=== PATIENT | female | born 1955 | race Caucasian/White ===

== ENCOUNTER 2018-03-12 17:16 | Observation (INO) | payer OTHER ==
--- NOTE | 2018-03-12 17:21 | PDOC ---
Rapid Medical Evaluation Time Seen by Provider: 03/12/18 17:17 Medical Evaluation: 03/12/18 17:18 62-year-old female with IDDM, HLD, HTN with "2 clogged veins in the heart" ( refused intervention), presenting with sudden onset of chest pain, left arm pain , and left arm "tingling" last night. Denies SOB, nausea, diaphoresis. V/s unremarkable. Alert, oriented, no distress. RRR, S1/S2. Lungs CTAB. Plan: -Stat EKG -Cardiac labs -CXR -To Main ED for further evaluation
[2018-03-12] MEDS ORDERED: ASPIRIN 81 MG CHEWABLE TABLETS PO ONE (17:54)
--- NOTE | 2018-03-12 17:55 | PDOC ---
History of Present Illness - General History Source: Patient Exam Limitations: Language Barrier (used [employer] phone ) - History of Present Illness Presenting Symptoms: Other (left arm pain) Timing/Duration: reports: constant Severity/Quality: reports: moderate, aching Location: reports: other (denies substernal chest pain) Prior Chest Pain/Cardiac Workup: reports: Cardiac Cath Nitro Today/Relief: Yes: no nitro taken today Aspirin Received prior to arrival (Core Measure): Yes: 81 mg x 4, provided by ED Beta Dav indicated at this time? (Core Measure): Yes <Ina Morris - Last Filed: 03/12/18 19:58> <Elijah Trinidad - Last Filed: 03/12/18 22:02> - General Chief Complaint: Chest Pain Stated Complaint: CHEST PAIN Time Seen by Provider: 03/12/18 17:17 - History of Present Illness Initial Comments: 03/12/18 21:45 Patient is a 62 year old female with a significant past medical history of Diabetes, HTN, Hypercholesterolemia, who presents to the ED with complaints of right arm pain that began last night. Patient reports experiencing gradually increased right arm pain since last night, prompting her to come into the ED for further evaluation. She reports having 2 clogged arteries and received catheterization in 2006 followed by advising her to have surgery but she refused. Denies chest pain, Sob. Denies nausea, vomiting. Allergies: None Social history: No smoking. No alcohol. No illicit drugs. Surgical history: None PMD: None (Elijah Trinidad) Past History - Past Medical History Cardiac Disorders: Yes COPD: No Diabetes: Yes HTN: Yes Hypercholesterolemia: Yes - Surgical History Abdominal Surgery: Yes (TUBAL LIGATION) - Suicide/Smoking/Psychosocial Hx Smoking History: Never smoked Information on smoking cessation initiated: No Hx Alcohol Use: No Drug/Substance Use Hx: No Substance Use Type: None <Ina Morris - Last Filed: 03/12/18 19:58> <Elijah Trinidad - Last Filed: 03/12/18 22:02> - Past Medical History Allergies/Adverse Reactions: Allergies Allergy/AdvReac Type Severity Reaction Status Date / Time No Known Allergies Allergy Verified 03/12/18 17:19 Review of Systems <Ina Morris - Last Filed: 03/12/18 19:58> - Review of Systems Able to Perform ROS?: Yes <AmosElijah workman - Last Filed: 03/12/18 22:02> - Review of Systems Comments:: 03/12/18 21:45 CONSTITUTIONAL: Absent: fever, chills, diaphoresis, generalized weakness, malaise, loss of appetite HEENT: Absent: rhinorrhea, nasal congestion, throat pain, throat swelling, difficulty swallowing, mouth swelling, ear pain, eye pain, visual changes CARDIOVASCULAR: Absent: chest pain, syncope, palpitations, irregular heart rate, lightheadedness , peripheral edema RESPIRATORY: Absent: cough, shortness of breath, dyspnea with exertion, orthopnea, wheezing, stridor, hemoptysis GASTROINTESTINAL: Absent: abdominal pain, abdominal distension, nausea, vomiting, diarrhea, constipation, melena, hematochezia GENITOURINARY: Absent: dysuria, frequency, urgency, hesitancy, hematuria, flank pain, genital pain MUSCULOSKELETAL: +Right arm pain. Absent: myalgia, arthralgia, joint swelling SKIN: Absent: rash, itching, pallor HEMATOLOGIC/IMMUNOLOGIC: Absent: easy bleeding, easy bruising, lymphadenopathy, frequent infections ENDOCRINE: Absent: unexplained weight gain, unexplained weight loss, heat intolerance, cold intolerance NEUROLOGIC: Absent: headache, focal weakness or paresthesias, dizziness, unsteady gait, seizure, mental status changes, bladder or bowel incontinence PSYCHIATRIC: Absent: anxiety, depression, suicidal or homicidal ideation, hallucinations. (Elijah Trinidad) *Physical Exam <Ina Morris - Last Filed: 03/12/18 19:58> <Elijah Trinidad - Last Filed: 03/12/18 22:02> - Vital Signs Last Vital Signs Temp Pulse Resp BP Pulse Ox 97.3 F L 75 18 149/65 98 03/12/18 17:19 03/12/18 17:19 03/12/18 17:19 03/12/18 17:19 03/12/18 17:53 - Physical Exam Comments: 03/12/18 21:46 GENERAL: Well developed, well nourished. Awake and alert. In no acute distress. HEENT: Normocephalic, atraumatic. PERRLA, EOMI. No conjunctival pallor. Sclerae are non -icteric. Moist mucous membranes. Oropharynx is clear. NECK: Supple. Full ROM. No JVD. Carotid pulses 2+ and symmetric, without bruits. No thyromegaly. No lymphadenopathy. CARDIOVASCULAR: Regular rate and rhythm. No murmurs, rubs, or gallops. Distal pulses are 2+ and symmetric. PULMONARY: No evidence of respiratory distress. Lungs clear to auscultation bilaterally. No wheezing, rales or rhonchi. ABDOMINAL:+Protuberant belly. Soft. Non-tender. Non-distended. No rebound or guarding. No organomegaly. Normoactive bowel sounds. MUSCULOSKELETAL: Normal range of motion at all joints. No bony deformities or tenderness. No CVA tenderness. EXTREMITIES: No cyanosis. No clubbing. No edema. No calf tenderness. SKIN: Warm and dry. Normal capillary refill. No rashes. No jaundice. NEUROLOGICAL: Alert, awake, appropriate. Cranial nerves 2-12 intact. No deficits to light touch and temperature in face, upper extremities and lower extremities. No motor deficits in the in face, upper extremities and lower extremities. Normoreflexic in the upper and lower extremities. Normal speech. Toes are downgoing bilaterally. Gait is normal without ataxia. PSYCHIATRIC: Cooperative. Good eye contact. Appropriate mood and affect. (Elijah Trinidad) Heart Score/ECG Review - History History: Highly suspicious - Electrocardiogram EKG: Significant ST-depression - Risk Factors Risk Factors Heart Score: Yes Hx Hypercholesterolemia, Yes Hx Hypertension, Yes Hx Diabetes Based on the list above the patient has:: >/=3 risk factors or Hx atherosclerotic disease - ECG Intrepretation Rhythm: Regular Rhythm - ST and T ST Depression Suggest: Ischemia - ECG Impressions Ischemic Changes: Yes <Ina Morris - Last Filed: 03/12/18 19:58> ED Treatment Course - LABORATORY CBC & Chemistry Diagram: 03/12/18 17:53 03/12/18 17:53 <Ina Morris - Last Filed: 03/12/18 19:58> - LABORATORY CBC & Chemistry Diagram: 03/12/18 17:53 03/12/18 17:53 <Elijah Trinidad - Last Filed: 03/12/18 22:02> - ADDITIONAL ORDERS Additional order review: Laboratory Results 03/12/18 03/12/18 17:53 17:53 PT with INR 11.20 INR 0.99 Sodium 142 Potassium 4.7 Chloride 103 Carbon Dioxide 30 Anion Gap 9 BUN 21 H Creatinine 0.9 Creat Clearance w eGFR > 60 Random Glucose 180 H Calcium 9.5 Total Bilirubin 0.2 AST 14 L ALT 21 Alkaline Phosphatase 92 Creatine Kinase 85 Troponin I < 0.02 B-Natriuretic Peptide 682.56 H Total Protein 7.5 Albumin 3.7 03/12/18 17:53 RBC 4.20 MCV 84.7 MCHC 33.1 RDW 14.2 MPV 9.7 Neutrophils % 41.3 L Lymphocytes % 47.6 H Monocytes % 9.2 Eosinophils % 1.3 Basophils % 0.6 - Medications Given in the ED: ED Medications Discontinued Medications Generic Name Dose Route Start Last Admin Trade Name Murray PRN Reason Stop Dose Admin Aspirin 324 mg 03/12/18 17:54 03/12/18 17:57 Asa - PO 03/12/18 17:55 324 mg ONCE ONE Administration Metoprolol Tartrate 25 mg 03/12/18 18:30 03/12/18 18:41 Lopressor - PO 03/12/18 18:31 25 mg ONCE ONE Administration *DC/Admit/Observation/Transfer - Discharge Dispostion Decision to Admit order: Yes <Ina Morris - Last Filed: 03/12/18 19:58> <Elijah Trinidad - Last Filed: 03/12/18 22:02> Diagnosis at time of Disposition: ACS (acute coronary syndrome) Diabetes Qualifiers: Diabetes mellitus type: type 1 Diabetes mellitus complication status: with hyperglycemia Qualified Code(s): E10.65 - Type 1 diabetes mellitus with hyperglycemia Hypertension Qualifiers: Hypertension type: essential hypertension Qualified Code(s): I10 - Essential ( primary) hypertension - Attestations Scribe Attestion: 03/12/18 21:48 Documentation prepared by Elijah Trinidad, acting as medical collections representative for Ina Morris MD. (Elijah Trinidad)
[2018-03-12] MEDS ORDERED: ASPIRIN 81 MG CHEWABLE TABLETS ONE (17:56)
[2018-03-12 18:13] LABS: BASO % 0.6 % (0-2.0); EOS % 1.3 % (0-4.5); HEMATOCRIT 35.6 % (32.4-45.2); HEMOGLOBIN 11.8 GM/dL (10.7-15.3); LYMPH % 47.6 % (8-40); MCH 28.1 pg (25.7-33.7); MCHC 33.1 g/dl (32.0-36.0); MEAN CELL VOLUME 84.7 fl (80-96); MEAN PLT VOLUME 9.7 fl (7.5-11.1); MONO % 9.2 % (3.8-10.2); NEUT % 41.3 % (42.8-82.8); PLATELET COUNT 273 K/MM3 (134-434); RDW 14.2 % (11.6-15.6); WHITE BLOOD COUNT 7.9 K/mm3 (4.0-10.0)
[2018-03-12 18:26] LABS: INR 0.99 (0.83-1.09); PROTHROMBIN TIME (PATIENT) 11.2 SEC (9.7-13.0)
[2018-03-12] MEDS ORDERED: METOPROLOL TARTRATE 25 MG TABLET (FP) PO ONE (18:30)
[2018-03-12 18:38] LABS: ALBUMIN 3.7 g/dl (3.4-5.0); ANION GAP 9 MMOL/L (8-16); BILIRUBIN,TOTAL 0.2 mg/dL (0.2-1.0); BLOOD UREA NITROGEN 21 mg/dL (7-18); CALCIUM 9.5 mg/dL (8.5-10.1); CHLORIDE 103 mmol/L (98-107); CO2 30 mmol/L (21-32); CREATININE 0.9 mg/dL (0.55-1.02); GLUCOSE,RANDOM 180 mg/dL (74-106); POTASSIUM 4.7 mmol/L (3.5-5.1); SGOT/AST 14 U/L (15-37); SGPT/ALT 21 U/L (12-78); SODIUM 142 mmol/L (136-145); TOT PROT 7.5 g/dl (6.4-8.2)
[2018-03-12 18:42] LABS: ALK PHOS 92 U/L (45-117); N-TERMINAL BNP 682.56 pg/ml (5-125)
[2018-03-12] MEDS ORDERED: METOPROLOL TARTRATE 25 MG TABLET (FP) ONE (18:43)
--- NOTE | 2018-03-12 21:58 | HP ---
Admitting History and Physical - Primary Care Physician PCP: Susan Wing - Admission Chief Complaint: chest pain History of Present Illness: 62 year old female with a significant past medical history of Diabetes, HTN, Hypercholesterolemia, who presents to the ED with complaints of right arm pain that began last night. Patient reports experiencing gradually increased right arm pain since last night, prompting her to come into the ED for further evaluation. She reports having 2 clogged arteries and received catheterization in 2006 followed by advising her to have surgery but she refused. - Past Medical History Cardiovascular: Yes: HTN, Hyperlipdemia Endocrine: Yes: Diabetes Mellitus - Smoking History Smoking history: Never smoked - Alcohol/Substance Use Hx Alcohol Use: No Home Medications - Allergies Allergies/Adverse Reactions: Allergies Allergy/AdvReac Type Severity Reaction Status Date / Time No Known Allergies Allergy Verified 03/12/18 17:19 - Home Medications Home Medications: Ambulatory Orders Aspirin [Aspirin EC] 81 mg PO DAILY 03/13/18 Atorvastatin Calcium 80 mg PO DAILY 03/13/18 Clopidogrel Bisulfate [Plavix] 75 mg PO DAILY 03/13/18 Isosorbide Mononitrate [Isosorbide Mononitrate ER] 30 mg PO DAILY 03/13/18 Metformin HCl 850 mg PO BID 03/13/18 Metoprolol Tartrate 50 mg PO DAILY 03/13/18 Pantoprazole Sodium [Protonix] 40 mg PO DAILY 03/13/18 Sitagliptin Phosphate [Januvia] 100 mg PO DAILY 03/13/18 Physical Examination Vital Signs: Vital Signs Temperature 97.3 F L 03/12/18 17:19 Pulse Rate 75 03/12/18 17:19 Respiratory Rate 18 03/12/18 17:19 Blood Pressure 149/65 03/12/18 17:19 O2 Sat by Pulse Oximetry (%) 98 03/12/18 17:53 Constitutional: Yes: No Distress HENT: Yes: Atraumatic Neck: Yes: Supple Cardiovascular: Yes: Regular Rate and Rhythm Respiratory: Yes: CTA Bilaterally Gastrointestinal: Yes: Normal Bowel Sounds Extremities: Yes: WNL Edema: No Peripheral Pulses WNL: Yes Neurological: Yes: Alert, Oriented Labs: CBC, BMP 03/12/18 17:53 03/12/18 17:53 Problem List - Problems (1) Diabetes Assessment/Plan: bgms will get home med list Code(s): E11.9 - TYPE 2 DIABETES MELLITUS WITHOUT COMPLICATIONS Qualifiers: Diabetes mellitus type: type 1 Diabetes mellitus complication status: with hyperglycemia Qualified Code(s): E10.65 - Type 1 diabetes mellitus with hyperglycemia (2) Hypertension Assessment/Plan: on meds stable Code(s): I10 - ESSENTIAL (PRIMARY) HYPERTENSION Qualifiers: Hypertension type: essential hypertension Qualified Code(s): I10 - Essential (primary) hypertension (3) Chest pain Assessment/Plan: tele monitoring cardiac profile and troponin cardiology on board Code(s): R07.9 - CHEST PAIN, UNSPECIFIED Assessment/Plan Laboratory Tests 03/12/18 03/12/18 03/12/18 17:53 17:53 17:53 WBC 7.9 RBC 4.20 Hgb 11.8 Hct 35.6 MCV 84.7 MCH 28.1 MCHC 33.1 RDW 14.2 Plt Count 273 MPV 9.7 Absolute Neuts (auto) 3.3 Neutrophils % 41.3 L Lymphocytes % 47.6 H Monocytes % 9.2 Eosinophils % 1.3 Basophils % 0.6 Nucleated RBC % 0 PT with INR 11.20 INR 0.99 Sodium 142 Potassium 4.7 Chloride 103 Carbon Dioxide 30 Anion Gap 9 BUN 21 H Creatinine 0.9 Creat Clearance w eGFR > 60 Random Glucose 180 H Calcium 9.5 Total Bilirubin 0.2 AST 14 L ALT 21 Alkaline Phosphatase 92 Creatine Kinase 85 Troponin I < 0.02 B-Natriuretic Peptide 682.56 H Total Protein 7.5 Albumin 3.7 Active Medications Generic Name Dose Route Start Last Admin Trade Name Freq PRN Reason Stop Dose Admin Acetaminophen 650 mg 03/12/18 22:03 Tylenol - PO Q6H PRN FEVER Aspirin 81 mg 03/13/18 10:00 03/13/18 14:21 Ecotrin - PO 81 mg DAILY [facility] Administration Atorvastatin Calcium 40 mg 03/13/18 22:00 Lipitor - PO HS DAN[facility]TE Atorvastatin Calcium 80 mg 03/13/18 18:30 Lipitor - PO DAILY [facility] Isosorbide Mononitrate 30 mg 03/13/18 18:30 Imdur - PO DAILY [facility] Metoprolol Succinate 25 mg 03/13/18 10:30 03/13/18 14:21 Toprol Xl - PO 25 mg DAILY [facility] Administration Non-Formulary Medication 850 mg 03/13/18 22:00 Metformin Hcl PO BID [facility] Non-Formulary Medication 50 mg 03/13/18 18:30 Metoprolol Tartrate PO DAILY [facility] Pantoprazole Sodium 40 mg 03/13/18 18:30 Protonix - PO DAILY [facility] Ramipril 5 mg 03/13/18 10:30 03/13/18 14:21 Altace - PO 5 mg DAILY [facility] Administration Sitagliptin Phosphate 100 mg 03/13/18 18:30 Januvia - PO DAILY [facility]
[2018-03-12] MEDS ORDERED: ACETAMINOPHEN 325 MG TABLET (FP) PO PRN (22:03)
[2018-03-12] MEDS ORDERED: ACETAMINOPHEN 325 MG TABLET (FP) PO ONE (22:38)
[2018-03-12] MEDS ORDERED: ACETAMINOPHEN 325 MG TABLET (FP) ONE (23:51)
[2018-03-13 02:36] VITALS: BMI 22.5
[2018-03-13 07:11] LABS: HEMATOCRIT 35.3 % (32.4-45.2); HEMOGLOBIN 11.5 GM/dL (10.7-15.3); MCH 27.7 pg (25.7-33.7); MCHC 32.5 g/dl (32.0-36.0); MEAN CELL VOLUME 85.2 fl (80-96); PLATELET COUNT 208 K/MM3 (134-434); RBC 4.15 M/mm3 (3.60-5.2); WHITE BLOOD COUNT 6.6 K/mm3 (4.0-10.0)
[2018-03-13 07:49] LABS: CHLORIDE 106 mmol/L (98-107); POTASSIUM 4.4 mmol/L (3.5-5.1); SODIUM 141 mmol/L (136-145)
[2018-03-13 08:02] LABS: ALBUMIN 3.3 g/dl (3.4-5.0); ALK PHOS 83 U/L (45-117); ANION GAP 10 MMOL/L (8-16); BILIRUBIN,TOTAL 0.4 mg/dL (0.2-1.0); BLOOD UREA NITROGEN 14 mg/dL (7-18); CALCIUM 8.9 mg/dL (8.5-10.1); CO2 25 mmol/L (21-32); CREATININE 0.8 mg/dL (0.55-1.02); GLUCOSE,RANDOM 149 mg/dL (74-106); SGOT/AST 14 U/L (15-37); SGPT/ALT 17 U/L (12-78)
--- NOTE | 2018-03-13 09:19 | PN ---
Progress Note (short form) - Note Progress Note: Chief Complaint: Events noted, notes reviewed, left arm pain and chest pain syndrome History of Present Illness: Seen and examined on telemetry. Full consult dictated Medications: Current Medications Acetaminophen (Tylenol -) 650 mg PO Q6H PRN PRN Reason: FEVER Review of Systems - Review of Systems Constitutional: denies: Chills or Fever Cardiovascular: as noted above Gastrointestinal: denies: Nausea, Vomiting, Diarrhea, Constipation or Abdominal Pain Genitourinary: No symptoms reported Neurological: No symptoms reported Vital Signs: Last Vital Signs Temp Pulse Resp BP Pulse Ox 97.8 F 58 L 18 142/64 94 L 03/13/18 05:00 03/13/18 05:00 03/13/18 05:00 03/13/18 05:00 03/13/18 01:00 Intake & Output 03/10/18 03/11/18 03/12/18 03/13/18 23:59 23:59 23:59 23:59 Intake Total 140 Balance 140 Weight 150 lb 139 lb 6.4 oz Neck: Supple Negative JVD No Bruit Respiratory: Clear to A&P Cardiovascular: S1 S2 Regularly Rate and Rhythm No Murmurs clicks or Gallops Gastrointestinal: Soft Benign Normal Bowel Sounds Ext: Negative Edema Labs: Troponin, BNP 03/12/18 03/13/18 17:53 01:00 Troponin I < 0.02 < 0.02 B-Natriuretic Peptide 682.56 H CBC, BMP 03/13/18 05:30 03/13/18 05:30 Hepatic Panel Total Bilirubin 0.4 mg/dL (0.2-1.0) 03/13/18 05:30 AST 14 U/L (15-37) L 03/13/18 05:30 ALT 17 U/L (12-78) 03/13/18 05:30 Alkaline Phosphatase 83 U/L (45-117) 03/13/18 05:30 Albumin 3.3 g/dl (3.4-5.0) L 03/13/18 05:30 INR, PTT INR 0.99 (0.83-1.09) 03/12/18 17:53 Assessment/Plan ASSESSMENT: 1. Chest pain syndrome in a patient with reported CAD angina pectoris 2. Probable diastolic LV dysfunction with class 0 NYHA classification LV failure 3. HTN 4. DM 5. Hypercholesterolemia PLAN: 1. Add B-Blockers 2. Add ACEI or ARBS 3. ASA 4. Statins 5. Obtain records form her prior cardiac evaluation 6. Echocardiography for evaluation of LV size and function 7. To proceed with MPI study for assessing ischemic burden Griselda Sands M.D.
[2018-03-13] MEDS ORDERED: REGADENOSON 0.4 MG/5 ML PRE-FILLED SYRINGE IVPUSH ONE ×2 (10:30→12:30)
[2018-03-13] MEDS ORDERED: metoPROLOL SUCCINATE 25 MG TAB.SR.24H (FP) PO SCH (10:30)
--- NOTE | 2018-03-13 10:43 | CONS ---
DATE OF CONSULTATION: 03/13/2018 Consultation requested by Elvin Wing MD. CHIEF COMPLAINT: Left arm pain, chest pain, cardiovascular evaluation. HISTORY OF PRESENT ILLNESS: A 62-year-old, female with known history of coronary artery disease, angina pectoris, probable diastolic left ventricular dysfunction with class 0 [place] Heart Association classification left ventricular failure, hypertensive cardiovascular disease, diabetes mellitus, hypercholesterolemia, who presented to [facility] with left arm discomfort and left-sided chest discomfort which was noted both at rest and with activity. Patient denied any associated diaphoresis. Patient reported dyspnea with mild to moderate physical exertion. Patient denied any orthopnea, paroxysmal nocturnal dyspnea or peripheral edema. Patient denied any palpitations, dizziness, lightheadedness or syncope. Patient denied any fatigue or tiredness. PAST MEDICAL HISTORY: Coronary artery disease; angina pectoris; diastolic left ventricular dysfunction with class 0 [place] Heart Association classification left ventricular failure; hypertensive cardiovascular disease; diabetes mellitus; hypercholesterolemia. PAST SURGICAL HISTORY: Tubal ligation. SOCIAL HISTORY: Denies tobacco abuse, alcohol intake. FAMILY HISTORY: Positive coronary artery disease. ALLERGIES: None reported. MEDICAL THERAPY AT HOME: Not known. REVIEW OF SYSTEMS: Head and neck: Denies headache, photophobia, blurring of vision. Respiratory: No cough or sputum production. Cardiovascular: As noted above. Gastrointestinal: Denies nausea, vomiting, diarrhea, abdominal discomfort. Genitourinary: No symptoms reported. PHYSICAL EXAMINATION: Vital signs: Blood pressure is 142/64 mmHg, pulse rate is 58 beats per minute. Head and neck: Pupils equally reactive to light and accommodation. Extraocular muscles are intact. Anicteric sclera. Negative JVD. No bruit appreciated. Chest: Clear to auscultation and percussion. Cardiovascular: S1, S2, regular. No murmur, clicks or gallops. Abdomen: Soft. Benign. Normoactive bowel sounds. Extremities: Negative edema. Intact distal pulses. No calf tenderness. Electrocardiogram reveals sinus rhythm, with diffuse ST segment and T-wave abnormality consistent with ischemia. CPK, troponin levels were noted. CBC revealed a white cell count of 6.6, hemoglobin 11.5, platelet count 205. Basic metabolic profile revealed a sodium of 141, potassium 4.4, BUN of 14, creatinine 0.8, glucose 149. INR 0.99. ASSESSMENT: 1. Chest pain syndrome, in a patient with known history of coronary artery disease, angina pectoris. 2. Probable diastolic left ventricular dysfunction with class 0 [place] Heart [employer] classification left ventricular failure. 3. Hypertensive cardiovascular disease. 4. Diabetes mellitus. 5. Hypercholesterolemia. RECOMMENDATIONS: 1. Beta-blockers. 2. Angiotensin-receptor blockers or RANDY inhibitors. 3. Aspirin. 4. Statins. 5. Obtain records from her prior cardiac evaluation. 6. Echocardiography for evaluation of left ventricular size and function. 7. To proceed with pharmacologic myocardial perfusion imaging study for assessing ischemic burden. Thank you for the kind referral. OLIVA GUTIERRES M.D. [id number]
[2018-03-13 11:21] LABS: CHOLESTEROL 340 mg/dL (50-200); TRIGLYCERIDES 340 mg/dL (35-160)
[2018-03-13 11:48] LABS: HDL CHOLESTEROL 32 mg/dL (40-60)
--- NOTE | 2018-03-13 14:02 | ECHO ---
Name: LYSSA BALOGIA Exam:Adult Echocardiogram Study Date: 03/13/2018 10:36 AM Age: 62 yrs Reason For Study: Chest pain Height: 66 in Weight: 139 lb BSA: 1.7 m2 MMode/2D Measurements & Calculations IVSd: 1.0 cm Ao root diam: 2.0 cm LVIDd: 4.6 cm LA dimension: 2.9 cm LVIDs: 2.9 cm LVPWd: 1.0 cm EDV(Teich): 98.3 ml LVOT diam: 2.0 cm ESV(Teich): 32.9 ml Doppler Measurements & Calculations MV E max kenny: 122.0 cm/sec MR max kenny: 605.2 cm/sec MV A max kenny: 89.7 cm/sec MR max P.2 mmHg MV E/A: 1.4 MV dec time: 0.38 sec Med Peak E' Kenny: 3.6 cm/sec PI Vmax: 99.1 cm/sec Med E/e': 34.0 Lat Peak E' Kenny: 6.4 cm/sec Lat E/e': 19.0 Procedure A complete two-dimensional transthoracic echocardiogram was performed (2D, M-mode, Doppler and color flow Doppler). Left Ventricle The left ventricular size, thickness and function are normal. Ejection Fraction = 60%. The transmitra l spectral Doppler flow pattern is suggestive of impaired LV relaxation. The left ventricular wall tonya on is normal. Right Ventricle The right ventricle is normal in size and function. Atria Normal left and right atrial size and function. Mitral Valve The mitral valve is grossly normal. There is mild mitral regurgitation. Tricuspid Valve The tricuspid valve is not well visualized. There was insufficient TR detected to calculate RV systol ic pressure. Aortic Valve There is mild to moderate aortic sclerosis.;. Pulmonic Valve The pulmonic valve is not well visualized. Trace pulmonic valvular regurgitation. Great Vessels The aortic root is normal size. Pericardium/Pleura There is no pericardial effusion. There is no pleural effusion. Interpretation Summary The left ventricular size, thickness and function are normal Ejection Fraction = 60%. There is mild mitral regurgitation. There is mild to moderate aortic sclerosis.; Trace pulmonic valvular regurgitation. There was insufficient TR detected to calculate RV systolic pressure. MD Den Gutierrez 03/13/2018 11:38 AM
[2018-03-13] MEDS: RAMIPRIL 5 MG CAPSULE (FP) PO SCH (14:21)
[2018-03-13] MEDS: ASPIRIN COATED 81 MG TABLET.EC PO SCH (14:21)
--- NOTE | 2018-03-13 18:13 | PN ---
Progress Note, Physician - Current Medication List Current Medications: Active Medications Acetaminophen (Tylenol -) 650 mg PO Q6H PRN PRN Reason: FEVER Aspirin (Ecotrin -) 81 mg PO DAILY [facility] Last Admin: 03/13/18 14:21 Dose: 81 mg Atorvastatin Calcium (Lipitor -) 40 mg PO [facility] Metoprolol Succinate (Toprol Xl -) 25 mg PO DAILY [facility] Last Admin: 03/13/18 14:21 Dose: 25 mg Ramipril (Altace -) 5 mg PO DAILY [facility] Last Admin: 03/13/18 14:21 Dose: 5 mg - Objective Vital Signs: Vital Signs Temperature 97.7 F 03/13/18 14:00 Pulse Rate 73 03/13/18 14:00 Respiratory Rate 20 03/13/18 14:00 Blood Pressure 148/62 03/13/18 14:00 O2 Sat by Pulse Oximetry (%) 94 L 03/13/18 09:00 Constitutional: Yes: No Distress HENT: Yes: Atraumatic Neck: Yes: Supple Cardiovascular: Yes: Regular Rate and Rhythm Respiratory: Yes: CTA Bilaterally Gastrointestinal: Yes: Normal Bowel Sounds Extremities: Yes: WNL Edema: No Peripheral Pulses WNL: Yes Neurological: Yes: Alert, Oriented Labs: CBC, BMP 03/13/18 05:30 03/13/18 05:30 INR, PTT INR 0.99 (0.83-1.09) 03/12/18 17:53 Problem List - Problems (1) Diabetes Assessment/Plan: bgms continue home meds Code(s): E11.9 - TYPE 2 DIABETES MELLITUS WITHOUT COMPLICATIONS Qualifiers: Diabetes mellitus type: type 1 Diabetes mellitus complication status: with hyperglycemia Qualified Code(s): E10.65 - Type 1 diabetes mellitus with hyperglycemia (2) Hypertension Assessment/Plan: on meds stable Code(s): I10 - ESSENTIAL (PRIMARY) HYPERTENSION Qualifiers: Hypertension type: essential hypertension Qualified Code(s): I10 - Essential (primary) hypertension (3) Chest pain Assessment/Plan: tele monitoring cardiac profile and troponin..negative stress test positive awaiting cardiology for further plans Code(s): R07.9 - CHEST PAIN, UNSPECIFIED
[2018-03-13] MEDS ORDERED: ASPIRIN COATED 81 MG TABLET.EC PO SCH (18:30)
[2018-03-13] MEDS ORDERED: CLOPIDOGREL BISULFATE 75 MG TABLET (FP) PO SCH (18:30)
[2018-03-13] MEDS ORDERED: ATORVASTATIN CA 80 MG TABLET (FP) PO SCH (18:30)
[2018-03-13] MEDS: sitaGLIPtin PHOSPHATE 100 MG TABLET (FP) PO SCH (21:07)
[2018-03-13] MEDS: ISOSORBIDE MONONITRATE 30 MG TAB.SR.24H (FP) PO SCH (21:10)
[2018-03-13] MEDS: METOPROLOL TARTRATE 25 MG TABLET (FP) PO SCH (21:10)
[2018-03-13] MEDS: PANTOPRAZOLE 40 MG TABLET (FP) PO SCH (21:10)
[2018-03-13] MEDS ORDERED: ATORVASTATIN CA 40 MG TABLET (FP) PO SCH (22:00)
[2018-03-14] MEDS: sitaGLIPtin PHOSPHATE 100 MG TABLET (FP) PO SCH (06:48)
[2018-03-14] MEDS: METOPROLOL TARTRATE 25 MG TABLET (FP) PO SCH (09:10)
[2018-03-14] MEDS: ISOSORBIDE MONONITRATE 30 MG TAB.SR.24H (FP) PO SCH (09:10)
[2018-03-14] MEDS: PANTOPRAZOLE 40 MG TABLET (FP) PO SCH (09:10)
[2018-03-14] MEDS: ASPIRIN COATED 81 MG TABLET.EC PO SCH (09:10)
[2018-03-14] MEDS: RAMIPRIL 5 MG CAPSULE (FP) PO SCH (09:11)
--- NOTE | 2018-03-14 10:49 | EKG ---
Test Reason : Blood Pressure : / mmHG Vent. Rate : 079 BPM Atrial Rate : 079 BPM P-R Int : 144 ms QRS Dur : 080 ms QT Int : 382 ms P-R-T Axes : 068 013 226 degrees QTc Int : 438 ms NORMAL SINUS RHYTHM MARKED ST ABNORMALITY, POSSIBLE INFERIOR SUBENDOCARDIAL INJURY ABNORMAL ECG NO PREVIOUS ECGS AVAILABLE Confirmed by ANA URRUTIA MD ([id number]) on 03/14/2018 10:48:57 AM Referred By: Confirmed By:ANA URRUTIA MD
--- NOTE | 2018-03-14 12:21 | PN ---
Progress Note, Physician History of Present Illness: No further left arm discomfort, denies chest pain or dyspnea, discussed echo and stress test results with patient, trying to obtain records from [employer] from [place]. - Current Medication List Current Medications: Active Medications Acetaminophen (Tylenol -) 650 mg PO Q6H PRN PRN Reason: FEVER Aspirin (Ecotrin -) 81 mg PO DAILY [facility] Last Admin: 03/14/18 09:10 Dose: 81 mg Atorvastatin Calcium (Lipitor -) 80 mg PO HS [facility] Last Admin: 03/13/18 21:10 Dose: 80 mg Isosorbide Mononitrate (Imdur -) 30 mg PO DAILY [facility] Last Admin: 03/14/18 09:10 Dose: 30 mg Metformin HCl (Glucophage -) 850 mg PO BIDAC [facility] Last Admin: 03/14/18 06:48 Dose: 850 mg Metoprolol Tartrate (Lopressor -) 50 mg PO DAILY [facility] Last Admin: 03/14/18 09:10 Dose: 50 mg Pantoprazole Sodium (Protonix -) 40 mg PO DAILY [facility] Last Admin: 03/14/18 09:10 Dose: 40 mg Ramipril (Altace -) 5 mg PO DAILY [facility] Last Admin: 03/14/18 09:11 Dose: 5 mg Sitagliptin Phosphate (Januvia -) 100 mg PO 0700 [facility] Last Admin: 03/14/18 06:48 Dose: 100 mg - Objective Vital Signs: Vital Signs Temperature 98.1 F 03/14/18 09:42 Pulse Rate 68 03/14/18 09:42 Respiratory Rate 18 03/14/18 09:42 Blood Pressure 133/52 03/14/18 09:42 O2 Sat by Pulse Oximetry (%) 97 03/14/18 09:00 Constitutional: Yes: No Distress, Calm Neck: Yes: Supple Cardiovascular: Yes: Regular Rate and Rhythm Respiratory: Yes: Regular, CTA Bilaterally Gastrointestinal: Yes: Normal Bowel Sounds, Soft Edema: No Labs: CBC, BMP 03/13/18 05:30 03/13/18 05:30 INR, PTT INR 0.99 (0.83-1.09) 03/12/18 17:53 Problem List - Problems (1) Coronary artery disease Code(s): I25.10 - ATHSCL HEART DISEASE OF [place] CORONARY ARTERY W/O ANG PCTRS Qualifiers: Coronary Disease-Associated Artery/Lesion type: [place] artery [place] vs. transplanted heart: [place] heart Associated angina: without angina Qualified Code(s): I25.10 - Atherosclerotic heart disease of [place] coronary artery without angina pectoris (2) Angina pectoris associated with type 2 diabetes mellitus Code(s): E11.59 - TYPE 2 DIABETES MELLITUS WITH OTH CIRCULATORY COMPLICATIONS; I20.9 - ANGINA PECTORIS, UNSPECIFIED (3) Abnormal nuclear cardiac imaging test Code(s): R93.1 - ABNORMAL FINDINGS ON DX IMAGING OF HEART AND COR CIRC (4) Diabetes Code(s): E11.9 - TYPE 2 DIABETES MELLITUS WITHOUT COMPLICATIONS Qualifiers: Diabetes mellitus type: type 2 Diabetes mellitus complication status: with hyperglycemia Qualified Code(s): E10.65 - Type 1 diabetes mellitus with hyperglycemia (5) Hypertension Code(s): I10 - ESSENTIAL (PRIMARY) HYPERTENSION Qualifiers: Hypertension type: essential hypertension Qualified Code(s): I10 - Essential (primary) hypertension Assessment/Plan 03/13/2018 ETT-Myoview: Large [id number] lateral ischema with mild lateral HK, LVEF 53% 03/13/2018 Echo: Normal LV size and fxn, mild MR, LVEF 60% 1. CAD angina pectoris with abnormal MPI 2. Probable diastolic LV dysfunction with class 0 NYHA classification LV failure 3. HTN 4. DM 5. Hypercholesterolemia PLAN: 1. Continue ASA 81 qd, Lipitor 80 qd, Imdur 30 qd, metoprolol 50 qd, rampiril 5 qd 2. Obtain records form her prior cardiac evaluation from [employer] from [place] [facility]. Discussed cath, she is hesitant as she is now asymptomatic on medications and denies sxs while on treadmill, will review MPI to confirm severity
[2018-03-14] MEDS ORDERED: PT OWN MED DRAWER 7, Y5N ONE (17:51)
--- NOTE | 2018-03-14 18:48 | PN ---
Progress Note, Physician - Current Medication List Current Medications: Active Medications Acetaminophen (Tylenol -) 650 mg PO Q6H PRN PRN Reason: FEVER Aspirin (Ecotrin -) 81 mg PO DAILY [facility] Last Admin: 03/14/18 09:10 Dose: 81 mg Atorvastatin Calcium (Lipitor -) 80 mg PO HS [facility] Last Admin: 03/13/18 21:10 Dose: 80 mg Isosorbide Mononitrate (Imdur -) 30 mg PO DAILY [facility] Last Admin: 03/14/18 09:10 Dose: 30 mg Metformin HCl (Glucophage -) 850 mg PO BIDAC [facility] Last Admin: 03/14/18 17:56 Dose: 850 mg Metoprolol Succinate (Toprol Xl -) 50 mg PO DAILY [facility] Pantoprazole Sodium (Protonix -) 40 mg PO DAILY [facility] Last Admin: 03/14/18 09:10 Dose: 40 mg Ramipril (Altace -) 5 mg PO DAILY [facility] Last Admin: 03/14/18 09:11 Dose: 5 mg Sitagliptin Phosphate (Januvia -) 100 mg PO 0700 [facility] Last Admin: 03/14/18 06:48 Dose: 100 mg - Objective Vital Signs: Vital Signs Temperature 97.8 F 03/14/18 14:00 Pulse Rate 68 03/14/18 14:00 Respiratory Rate 20 03/14/18 14:00 Blood Pressure 148/50 03/14/18 14:00 O2 Sat by Pulse Oximetry (%) 97 03/14/18 09:00 Labs: CBC, BMP 03/13/18 05:30 03/13/18 05:30 INR, PTT INR 0.99 (0.83-1.09) 03/12/18 17:53 Problem List - Problems (1) Diabetes Code(s): E11.9 - TYPE 2 DIABETES MELLITUS WITHOUT COMPLICATIONS Qualifiers: Diabetes mellitus type: type 2 Diabetes mellitus complication status: with hyperglycemia Qualified Code(s): E10.65 - Type 1 diabetes mellitus with hyperglycemia (2) Hypertension Code(s): I10 - ESSENTIAL (PRIMARY) HYPERTENSION Qualifiers: Hypertension type: essential hypertension Qualified Code(s): I10 - Essential (primary) hypertension (3) Chest pain Code(s): R07.9 - CHEST PAIN, UNSPECIFIED
--- NOTE | 2018-03-14 20:46 | DS ---
Physical Examination Vital Signs: Vital Signs Temperature 98.0 F 03/14/18 17:00 Pulse Rate 77 03/14/18 17:00 Respiratory Rate 18 03/14/18 17:00 Blood Pressure 150/75 03/14/18 17:00 O2 Sat by Pulse Oximetry (%) 97 03/14/18 09:00 Constitutional: Yes: No Distress HENT: Yes: Atraumatic Neck: Yes: Supple Cardiovascular: Yes: Regular Rate and Rhythm Respiratory: Yes: CTA Bilaterally Gastrointestinal: Yes: Normal Bowel Sounds Extremities: Yes: WNL Edema: No Neurological: Yes: Alert, Oriented Labs: CBC, BMP 03/13/18 05:30 03/13/18 05:30 Discharge Summary Reason For Visit: DIABETES MELLITUS, ACUTE CORONARY SYNDROME, Current Active Problems Abnormal nuclear cardiac imaging test (Acute) Angina pectoris associated with type 2 diabetes mellitus (Acute) Chest pain (Acute) Coronary artery disease (Acute) Diabetes (Acute) Hypertension (Acute) - Instructions - Home Medications Comprehensive Discharge Medication List: Ambulatory Orders Aspirin [Aspirin EC] 81 mg PO DAILY 03/13/18 Atorvastatin Calcium 80 mg PO DAILY 03/13/18 Clopidogrel Bisulfate [Plavix] 75 mg PO DAILY 03/13/18 Isosorbide Mononitrate [Isosorbide Mononitrate ER] 30 mg PO DAILY 03/13/18 Metformin HCl 850 mg PO BID 03/13/18 Metoprolol Tartrate 50 mg PO DAILY 03/13/18 Pantoprazole Sodium [Protonix] 40 mg PO DAILY 03/13/18 Sitagliptin Phosphate [Januvia] 100 mg PO DAILY 03/13/18 Metoprolol Succinate [Toprol XL -] 50 mg PO DAILY #30 tab.sr.24h 03/14/18 Ramipril [Altace] 5 mg PO DAILY #30 capsule 03/14/18 stable wants to go home will dc fu pmd next week
[2018-03-14 21:39] VITALS: BP 148/60; PULSE 62; TEMP 97.8
== END 2018-03-14 21:30 | disposition home or self-care (01) ==
LOC: JER 17:16 → JERBED 20:00 → J4W 03-13 01:30
PROVIDERS: ADMIT Internal Medicine; ATTEND Internal Medicine
PROC: 3E033GC Introduction of Other Therapeutic Substance into Peripheral Vein, Percutaneous Approach (ICD-10-PCS; principal; 2018-03-12)
DX: I24.9 Acute ischemic heart disease, unspecified (principal); E11.65 Type 2 diabetes mellitus with hyperglycemia; E11.59 Type 2 diabetes mellitus with other circulatory complications; I10 Essential (primary) hypertension; E78.5 Hyperlipidemia, unspecified; I25.119 Atherosclerotic heart disease of native coronary artery with unspecified angina pectoris; R07.89 Other chest pain; R93.1 Abnormal findings on diagnostic imaging of heart and coronary circulation
CPT/HCPCS: 36415; 71045-TC-FY; 78452-TC; 80053; 80061; 82550; 82962; 83721; 83880; 84484; 85025; 85027; 85610; 93005; 93010; 93017; 93306-TC; 96374; 99285-25; A9502; G0378; J2785